=== PATIENT | male | born 1995 | race Caucasian/White ===

== ENCOUNTER 2024-02-11 11:33 | Emergency (ER) | payer OTHER ==
[2024-02-11] MEDS: Ondansetron 4 MG/2 ML SDV IVPUSH ONE (11:52)
[2024-02-11] MEDS: HYDROmorphone 0.5 MG/0.5 ML Syringe IVPUSH ONE (11:55)
[2024-02-11] MEDS: Sodium Chloride 0.9% 10 ML Syringe FLUSH PRN (12:02)
[2024-02-11] MEDS: Acetaminophen/HYDROcodone 325-10 MG Tab PO ONE (12:24)
[2024-02-11 12:37] VITALS: BP 120/79; PULSE 58
== END 2024-02-11 12:52 | disposition home or self-care (01) ==
LOC: LL.ED 11:33
DX: S62.501A Fracture of unspecified phalanx of right thumb, initial encounter for closed fracture (principal); F17.210 Nicotine dependence, cigarettes, uncomplicated; Z88.2 Allergy status to sulfonamides; W55.22XA Struck by cow, initial encounter; Y99.0 Civilian activity done for income or pay
CPT/HCPCS: 73130-RT; 96374; 96375; 99283-25; A9270-GY; J1170; J2405; J3490